=== PATIENT | male | born 1980 | race Caucasian/White ===

== ENCOUNTER 2018-12-16 16:26 | Emergency (ER) | payer OTHER, SELFPAY ==
[2018-12-16 16:28] VITALS: BP 153/93; PULSE 109; RESP 19; TEMP 36.3; O2SAT 99; BMI 31.6
--- NOTE | 2018-12-16 16:57 | ED.VIS.GEN ---
History of Present Illness Chief Complaint: Other, Pain/Inj Informant: Patient Narrative: Patient here with whole family for rabies vaccination and immunoglobulin. Exposed to about 11 days ago in the basement. 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 He states he called services who came the following day, they found a bat droppings couple areas in the attic and basement however that was not found. The following day the bat was found flying upstairs in the living room in the kitchen. Services were called back, the bat was caught, euthanized, sent to the lab on Saturday, he was confirmed to be rabid 2 days later on Saturday. They called the health department the following day was told he would need treatment. Father called food and beverage intern for children, was told he would not need treatment. They received additional notice from health department under door on Saturday, he called yesterday, was told her vaccination should have been already given and that whole family should have received this. Rediscussed with children's physician who did research and agrees today that vaccinations and immunoglobulin should be given. Reports to me that pharmacy in hospital here was already contacted who has enough quantity for treatment. Patient denies any pain rash or punctures. Reports he had chills yesterday. Only past medical history is GERD on medications. Prior similar symptoms: No Past Medical History - Allergies and Home Meds Allergies/Adverse Reactions: Allergies bee venom protein (honey bee) Allergy (Verified 12/16/18 16:28) Laryngospasms cat dander Allergy (Verified 12/16/18 16:28) Itching tomato Allergy (Verified 12/16/18 16:28) Hives tree and shrub pollen Allergy (Verified 12/16/18 16:28) Itching Primary Care Physician: Wing Galloway MD [Primary Care Provider] - Smoking Status: Never smoker Review of Systems General: Reports: Chills. Denies: Fever, Sweats Eyes: Denies: Visual changes - bilaterally, Diplopia ENT: Denies: Rhinorrhea, Sore throat Cardiovascular: Denies: Chest pain, Palpitations Respiratory: Denies: Dyspnea, Cough, Dyspnea on exertion Gastrointestinal: Denies: Abdominal pain, Nausea, Vomiting, Diarrhea, Melena, Hematochezia Genitourinary: Denies: Dysuria, Hematuria, Frequency Musculoskeletal: Denies: Back pain, Extremity Pain Skin: Denies: Rash, Wounds Neurological: Denies: Headache, Weakness, Numbness Physical Exam Vital Signs/Narrative: Vital Signs Temp Pulse Resp BP Pulse Ox 12/16/18 16:28 97.4 F L 109 H 19 H 153/93 H 99 Inital Vital Signs reviewed: Yes General: Well nourished, Well developed, No Acute Distress Head: Normocephalic, Atraumatic Eyes: Perrl, EOMI ENT: Moist mucous membranes, No rhinorrhea Neck: Supple, Nontender Cardiovascular: Regular rate, Regular rhythm, No murmurs Respiratory: No distress, CTA bilaterally, Chest nontender Abdomen: Soft, Nontender, Nondistended, Normal bowel sounds Back: Nontender, Normal Inspection Extremities: Nontender, No edema Skin: Normal color, No rash Neurological: Alert, Oriented x3, Cranial nerves II-XII grossly intact, Normal Strength, Normal Sensation Psychological: Normal affect, Normal Mood Diagnostic/Tx/Re-eval - Medical Decision Making Patient vital signs stable, nontoxic. Evaluation of CDC site does note that intubation. Could last from 2 to 8 weeks. Reported positive rabies exposure from bat. Agree with recommended treatment. Rabies vaccine will be given along with immunoglobulin at 20 units/kg. He will be scheduled to return for additional vaccine series at 3, 7, 14 days. ED Disposition - Plan for ED Patient: Disposition: Home or Assisted Living Diagnosis: Rabies exposure Instructions: Vaccine Information: Rabies, Rabies Immune Globulin (Human) Solution for injection Referrals: Wing Galloway MD [Primary Care Provider] - 5-7 Days Additional Instructions: Return for series of vaccines for rabies at day 3, 7, and 14 days. You do not need to check into the ED. This is performed in the triage.
[2018-12-16] MEDS: Rabies Vaccine,Human Diploid 2.5 UNITS Vial IM (18:15)
[2018-12-16 18:48] VITALS: RESP 18; O2SAT 100
== END 2018-12-16 18:48 | disposition home or self-care (01) ==
PROVIDERS: Emergency Provider Emergency Medicine; Family Provider Family Medicine; PCP Family Medicine
DX: Z23 Encounter for immunization (principal); Z20.3 Contact with and (suspected) exposure to rabies; K21.9 Gastro-esophageal reflux disease without esophagitis; Z79.899 Other long term (current) drug therapy
CPT/HCPCS: 90375; 90675; 96372; 99282

== ENCOUNTER 2018-12-19 16:25 | Outpatient (CLI) | payer OTHER, SELFPAY ==
[2018-12-19 17:13] VITALS: BP 118/86; PULSE 84; RESP 16; TEMP 36.8; O2SAT 96
[2018-12-19] MEDS: Rabies Vaccine,Human Diploid 2.5 UNITS Vial IM (17:17)
== END 2018-12-19 17:32 | disposition home or self-care (01) ==
LOC: ED 19:38
PROVIDERS: Family Provider Family Medicine; PCP Family Medicine
DX: Z23 Encounter for immunization (principal); Z20.3 Contact with and (suspected) exposure to rabies
CPT/HCPCS: 90675; 96372

== ENCOUNTER 2018-12-23 16:45 | Outpatient (CLI) | payer OTHER, SELFPAY ==
[2018-12-23 18:12] VITALS: BP 135/78; PULSE 75; RESP 18; TEMP 36.3; O2SAT 97
[2018-12-23] MEDS: Rabies Vaccine,Human Diploid 2.5 UNITS Vial IM (18:15)
== END 2018-12-23 18:30 | disposition home or self-care (01) ==
LOC: ED 18:34
PROVIDERS: Family Provider Family Medicine; PCP Family Medicine
DX: Z23 Encounter for immunization (principal); Z20.3 Contact with and (suspected) exposure to rabies
CPT/HCPCS: 90675; 96372

== ENCOUNTER 2018-12-30 17:00 | Outpatient (CLI) | payer OTHER, SELFPAY ==
[2018-12-30 17:06] VITALS: BP 113/66; PULSE 83; RESP 16; TEMP 36.4; O2SAT 99; BMI 31.9
[2018-12-30] MEDS: Rabies Vaccine,Human Diploid 2.5 UNITS Vial IM (17:50)
== END 2018-12-30 18:06 | disposition home or self-care (01) ==
LOC: ED 18:16
PROVIDERS: Family Provider Family Medicine; PCP Family Medicine
DX: Z23 Encounter for immunization (principal)
CPT/HCPCS: 90471; 90675; 96372

== ENCOUNTER 2022-12-05 07:04 | Day surgery (SDC) | payer OTHER, SELFPAY ==
[2022-12-05] VITALS (8 sets, daily range): BP systolic 87–134; BP diastolic 62–87; PULSE 69–92; RESP 16–18; TEMP 36.2–37.1; O2SAT 92–99; BMI 36.8
--- NOTE | 2022-12-05 | COLBX_PTH ---
PATIENT: NORMAN SANCHEZ LOC: EN U#:[id number] AGE/SX: 42/M ROOM: RE12/05/[address]: Dr. Geovanni Awad DO : 1980 BED: DIS: 12/05/2022 SPEC #: [id number] RECD: 12/05/22 12:19 STATUS: HERI KOURTNEY #: [id number] GIOVANNA: 12/05/22 00:[address]: Geovanni Awad DEPT: SURGICAL PATHOLOGY RECD BY: Gerry Maharaj ENTERED: 12/05/22 12:59 SP TYPE: COLON BX OTHR DR: Dr. Wing Galloway MD Tissues: A - Esophagus, NOS B - Gastric mucous membrane C - Descending colon Procedures: Surgery Specimen Level IV HEADER OPERATION: Colonoscopy with biopsy, EGD with biopsies PRE-OP DIAGNOSIS: GERD, bloody stools TISSUE SUBMITTED: A - Distal esophagus polyp biopsy, B - Gastric polyp, C - Descending colon polyp MICROSCOPIC DIAGNOSIS A. Distal esophagus polyp, biopsy: Fragments of squamous mucosa with chronic inflammation and changes suggestive of squamous papilloma. B. Gastric polyp, biopsy: Fundic gland polyp. See comment. C. Descending colon polyp, biopsy: Tubular adenoma. SJ:rg 12/06/2022 COMMENT B. Immunohistochemistry for Helicobacter pylori can be performed if clinically indicated. Please notify the Laboratory if it is needed. MICROSCOPIC DESCRIPTION Slides are reviewed. GROSS DESCRIPTION A - Received in fixative is one container labeled with the patient's name and designated distal esophagus polyp biopsy. The specimen consists of multiple irregular fragments of light keita soft tissue that in aggregate measure 1.2 x 0.2 x 0.1 cm. The specimen is totally submitted in one cassette. B - Received in fixative is one container labeled with the patient's name and designated gastric polyp. The specimen consists of two irregular fragments of light keita soft tissue that in aggregate measure 0.6 x 0.3 x 0.1 cm. The specimen is totally submitted in one cassette. C - Received in fixative is one container labeled with the patient's name and designated descending colon polyp. The specimen consists of a keita-pink polyp measuring 0.5 x 0.4 x 0.2 cm. The specimen is totally submitted in one cassette. / MARSHA:branden 12/05/2022 TC:1 CPT: 30105 x3
--- NOTE | 2022-12-05 | COLBX_PTH ---
PATIENT: NORMAN SANCHEZ LOC: EN U#:[id number] AGE/SX: 42/M ROOM: RE12/05/[address]: Dr. Geovanni Awad DO : 1980 BED: DIS: 12/05/2022 SPEC #: [id number] RECD: 12/05/22 12:19 STATUS: HERI KOURTNEY #: [id number] GIOVANNA: 12/05/22 00:[address]: Geovanni Awad DEPT: SURGICAL PATHOLOGY RECD BY: Gerry Maharaj ENTERED: 12/05/22 12:59 SP TYPE: COLON BX OTHR DR: Dr. Wing Galloway MD Tissues: A - Esophagus, NOS B - Gastric mucous membrane C - Descending colon Procedures: Surgery Specimen Level IV HEADER OPERATION: Colonoscopy with biopsy, EGD with biopsies PRE-OP DIAGNOSIS: GERD, bloody stools TISSUE SUBMITTED: A - Distal esophagus polyp biopsy, B - Gastric polyp, C - Descending colon polyp MICROSCOPIC DIAGNOSIS A. Distal esophagus polyp, biopsy: Fragments of squamous mucosa with chronic inflammation and changes suggestive of squamous papilloma. See comment. B. Gastric polyp, biopsy: Fundic gland polyp. See comment. C. Descending colon polyp, biopsy: Tubular adenoma. SJ:branden 12/06/2022 SJ: 12/07/2022 COMMENT A. Focal superficial erosion, acute and chronic inflammation, granulation tissue reaction and reactive changes are also noted. B. Immunohistochemistry for Helicobacter pylori can be performed if clinically indicated. Please notify the Laboratory if it is needed. Case has been reviewed in consultation with Dr. Lang who concurs with the above diagnosis. IDC:AM MICROSCOPIC DESCRIPTION Slides are reviewed. GROSS DESCRIPTION A - Received in fixative is one container labeled with the patient's name and designated distal esophagus polyp biopsy. The specimen consists of multiple irregular fragments of light keita soft tissue that in aggregate measure 1.2 x 0.2 x 0.1 cm. The specimen is totally submitted in one cassette. B - Received in fixative is one container labeled with the patient's name and designated gastric polyp. The specimen consists of two irregular fragments of light keita soft tissue that in aggregate measure 0.6 x 0.3 x 0.1 cm. The specimen is totally submitted in one cassette. C - Received in fixative is one container labeled with the patient's name and designated descending colon polyp. The specimen consists of a keita-pink polyp measuring 0.5 x 0.4 x 0.2 cm. The specimen is totally submitted in one cassette. / SJ:rg 12/05/2022 TC:1 CPT: 07296 x3
[2022-12-05] MEDS: Ipratropium/Albuterol Sulfate 3 ML AMPUL.NEB INHALATION (07:45)
[2022-12-05] MEDS: Lactated Ringers 1,000 ML 15 ML IV (07:47)
--- NOTE | 2022-12-05 07:50 | HP.PCM_ITS ---
History and Physical Date of Admission: 12/05/22 NORMAN SANCHEZ, is a 42 M who presents to the office today for a follow up. *BGI established 6.21.22 for GERD currently managed by lansoprazole 30mg QD with breakthrough symptoms by the evening. Notes blood on toilet paper following morning BM. EGD and colonoscopy recommended, not performed.? States that since switching to a bidet he has not noticed much rectal bleeding. States that BMs are regular and has a BM at least 3 times a day. States that his GERD has improved since not snacking at night. Patient would like to get rescheduled for EGD/Colonoscopy. ROS Const Constitutional: No fatigue, fever(s), frequent falls, headache(s) or weight c hange ENT ENT: Positive for neck pain; No headache(s) or difficulty swallowing Cardio Cardiology: No leg pain with exertion Gastro GI: Positive for heartburn and vomiting; No abdominal pain, bloating, change in bowel habits, constipation, diarrhea, difficulty swallowing, Vomiting blood/hematemesis, Blood in stool or nause a/dyspepsia Musc Musculoskeletal: Positive for neck pain; No abnormal gait, joint pain, back pain, joint swelling, muscle cramps, muscle weakness, numbness, stiffness, tingling, Arthritis, sciatica, leg pain at night or leg pain with exertion Skin Skin: Positive for dry skin, itchy eyes and rash (scabies); No lesions Neuro Neurology: No abnormal gait, dizziness, frequent falls, headache(s), numbness, tingling, tremor(s), Increased tone in limbs, paralysis or seizures Psych Psychiatric: Positive for anxiety, No depression, No paranoia, No Behavioral Problems, No Compulsive Behavior, No hyperactivity, No inattentiveness, No obsessions/compulsions, No Temper Tantrums and No suicidal ideation Endo Endocrine: No fatigue or weight change Aller/Imm Allergy/Immunologic: Positive for itchy eyes George/Lymp Hematologic/Lymphatic: No easy bleeding or easy bruising Exam Const General: cooperative and comfortable Nutritional Appearance: average body habitus and well nourished [facility] Head: normal to inspection Ears: hearing grossly normal bilaterally Nose: external nose normal Face and sinus: normal facial exam Mouth: oral mucosae normal Throat: posterior oropharynx normal Eyes General: appearance normal, both eyes and all related structures Neck Neck: normal visual inspection Chest Chest palpation & inspection: normal inspection of the chest and normal palpation of entire chest wall Resp Effort & Inspection: normal respiratory effort Auscultation: Bilateral: Clear to Auscultation Cardio Palpation: normal PMI Rate: regular rate Rhythm: regular rhythm GI Inspection: normal to inspection Auscultation: normal bowel sounds Percussion: normal to percussion Palpation: no hepatosplenomegaly Skin General: no rashes or lesions noted Neuro General: patient alert Extrem General: normal to inspection Psych Affect: normal affect Quality Reporting Tobacco Screening ([facility] 138) Smoking Status: Former smoker Assessment and Plan Assessment and Plan (1) Gastroesophageal reflux disease: Qualifiers: Esophagitis presence: without esophagitis Qualified Code(s): K21.9 - Gastro-esophageal reflux disease without esophagitis Plan: Differential diagnosis for his refractory gastroesophageal reflux bile acid reflux, refractory reflux ,hiatal hernia, incompetent lower esophageal sphincter, delayed gastric emptying. He should undergo an upper endoscopy to evaluate his upper GI tract for screening for Gupta's esophagus. He was explained alternatives, risk, benefits including outstanding bleeding, infection, sepsis, perforation, need for additional . He will have an ASA of 1. (2) Bloody stools: Status: Acute Plan: Differential diagnosis for his bloody stools does include diverticular disease, ischemic colitis, Crohn's colitis, ulcerative colitis, infectious colitis. We will do stool studies along with biochemical testing and colonoscopy to evaluate his lower GI tract. He was explained alternatives, risk, benefits including outstanding bleeding, infection, sepsis, perforation, need for urgent . He will have an ASA of 1. I have examined the patient and the H&P has been reviewed. There are no clinical changes since date of exam.
--- NOTE | 2022-12-05 08:42 | OP.EGD_ITS ---
Patient Name: Zoltan Newton Procedure Date: 12/05/2022 7:52 AM Date of : 1980 Age: 42 Procedure: Upper GI endoscopy Indications: Heartburn Providers: Geovanni Awad DO Medicines: Monitored Anesthesia Care Patient Profile: This is a 42 year old male. Refer to note in patient chart for documentation of history and physical. Patient has symptoms of chronic heartburn. Complications: No immediate complications. Procedure: Pre-Anesthesia Assessment: - Prior to the procedure, a History and Physical was performed, and patient medications and allergies were reviewed. The patient is competent. The risks and benefits of the procedure and the sedation options and risks were discussed with the patient. All questions were answered and informed consent was obtained. Patient identification and proposed procedure were verified by the physician. Mental Status Examination: alert and oriented. Airway Examination: normal oropharyngeal airway and neck mobility. Respiratory Examination: clear to auscultation. CV Examination: normal. Prophylactic Antibiotics: The patient does not require prophylactic antibiotics. Prior Anticoagulants: The patient has taken no anticoagulant or antiplatelet agents. ASA Grade Assessment: II - A patient with mild systemic disease. After reviewing the risks and benefits, the patient was deemed in satisfactory condition to undergo the procedure. The anesthesia plan was to use monitored anesthesia care (MAC). Immediately prior to administration of medications, the patient was re-assessed for adequacy to receive sedatives. The heart rate, respiratory rate, oxygen saturations, blood pressure, adequacy of pulmonary ventilation, and response to care were monitored throughout the procedure. The physical status of the patient was re-assessed after the procedure. After obtaining informed consent, the endoscope was passed under direct vision. Throughout the procedure, the patient's blood pressure, pulse, and oxygen saturations were monitored continuously. The pediatric colonoscope was introduced through the mouth, and advanced to the second part of duodenum. The upper GI endoscopy was accomplished without difficulty. The patient tolerated the procedure well. Scope In: 8:07:15 AM Scope Out: 8:14:09 AM Total Procedure Duration Time 0 hours 6 minutes 54 seconds Findings: One 5 mm polyp with no bleeding was found 40 to 41 cm from the incisors. Biopsies were taken with a cold forceps for histology. Verification of patient identification for the specimen was done by the physician. Estimated blood loss was minimal. A medium-sized hiatal hernia was present. Multiple 29 mm pedunculated and sessile polyps with no bleeding and no stigmata of recent bleeding were found in the gastric fundus, in the gastric body and on the greater curvature of the stomach. Biopsies were taken with a cold forceps for histology. Biopsies were taken with a cold forceps for histology. Verification of patient identification for the specimen was done. Estimated blood loss was minimal. The exam of the duodenum was otherwise normal. Impression: - Esophageal polyp(s) were found. Biopsied. - Medium-sized hiatal hernia. - Multiple gastric polyps. Biopsied. Recommendation: - Discharge patient to home. - Resume previous diet. - Continue present medications. - Await pathology results. - Repeat upper endoscopy in 2 months. Procedure Code(s): --- Professional --- 11467, Esophagogastroduodenoscopy, flexible, transoral; with biopsy, single or multiple CPT copyright 2021 [employer]. All rights reserved. The codes documented in this report are preliminary and upon control electrician review may be revised to meet current compliance requirements. Geovanni Awad DO 12/05/2022 8:42:03 AM This report has been signed electronically. Number of Addenda: 0 Note Initiated On: 12/05/2022 7:52 AM
--- NOTE | 2022-12-05 08:42 | OP.CCLET_ITS ---
12/05/2022 Wing Galloway [address] [place] [address] [place] [address] Re : Upper GI endoscopy procedure for Zoltan Newton Dear Dr. Galloway This procedure was performed on Monday, December 05, 2022. My impressions and recommendations are as follows: Impressions : - Esophageal polyp(s) were found. Biopsied. - Medium-sized hiatal hernia. - Multiple gastric polyps. Biopsied. Recommendations : - Discharge patient to home. - Resume previous diet. - Continue present medications. - Await pathology results. - Repeat upper endoscopy in 2 months. My findings are described in the full procedure note, which is enclosed. If I can be of further assistance, please feel free to contact me at . Sincerely, Geovanni Awad, 12/05/2022 8:42:03 AM This report has been signed electronically.
--- NOTE | 2022-12-05 08:45 | OP.CCLET_ITS ---
12/05/2022 Wing Galloway [address] [place] [address] [place] [id number] Re : Colonoscopy procedure for Zoltan Adornorien Dear Dr. Galloway This procedure was performed on Monday, December 05, 2022. My impressions and recommendations are as follows: Impressions : - A single non-bleeding colonic angiodysplastic lesion. - Diverticulosis in the recto-sigmoid colon and in the sigmoid colon. - One 7 mm polyp in the descending colon, removed with a hot snare. Resected and retrieved. Recommendations : - Repeat colonoscopy in 5 years for surveillance. - Continue present medications. - No aspirin, ibuprofen, naproxen, or other non-steroidal anti-inflammatory drugs for 7 days. My findings are described in the full procedure note, which is enclosed. If I can be of further assistance, please feel free to contact me at . Sincerely, Geovanni Friend, DO 12/05/2022 8:45:30 AM This report has been signed electronically.
--- NOTE | 2022-12-05 08:45 | OP.COLON_ITS ---
Patient Name: Zoltan Newton Procedure Date: 12/05/2022 8:14 AM Date of : 1980 Age: 42 Procedure: Colonoscopy Indications: Screening for colorectal malignant neoplasm Providers: Geovanni Awad DO Medicines: Monitored Anesthesia Care Patient Profile: This is a 42 year old male. Refer to note in patient chart for documentation of history and physical. Patient has symptoms of chronic heartburn. Last Colonoscopy: none. The patient's first colonoscopy is today. Complications: No immediate complications. Procedure: Pre-Anesthesia Assessment: - Prior to the procedure, a History and Physical was performed, and patient medications and allergies were reviewed. The patient is competent. The risks and benefits of the procedure and the sedation options and risks were discussed with the patient. All questions were answered and informed consent was obtained. Patient identification and proposed procedure were verified by the physician. Mental Status Examination: alert and oriented. Airway Examination: normal oropharyngeal airway and neck mobility. Respiratory Examination: clear to auscultation. CV Examination: normal. Prophylactic Antibiotics: The patient does not require prophylactic antibiotics. Prior Anticoagulants: The patient has taken no anticoagulant or antiplatelet agents. ASA Grade Assessment: II - A patient with mild systemic disease. After reviewing the risks and benefits, the patient was deemed in satisfactory condition to undergo the procedure. The anesthesia plan was to use monitored anesthesia care (MAC). Immediately prior to administration of medications, the patient was re-assessed for adequacy to receive sedatives. The heart rate, respiratory rate, oxygen saturations, blood pressure, adequacy of pulmonary ventilation, and response to care were monitored throughout the procedure. The physical status of the patient was re-assessed after the procedure. After I obtained informed consent, the scope was passed under direct vision. Throughout the procedure, the patient's blood pressure, pulse, and oxygen saturations were monitored continuously. The pediatric colonoscope was introduced through the anus and advanced to the cecum, identified by appendiceal orifice and ileocecal valve. The colonoscopy was performed without difficulty. The patient tolerated the procedure well. The quality of the bowel preparation was adequate. The ileocecal valve, appendiceal orifice, and rectum were photographed. Scope In: 8:16:03 AM Scope Withdrawal Time 0 hours 9 minutes 40 seconds Scope Out: 8:29:09 AM Total Procedure Duration Time 0 hours 13 minutes 6 seconds Findings: The perianal and digital rectal examinations were normal. A single small angiodysplastic lesion without bleeding was found in the sigmoid colon. A few small-mouthed diverticula were found in the recto-sigmoid colon and sigmoid colon. A 7 mm polyp was found in the descending colon. The polyp was sessile. The polyp was removed with a hot snare. Resection and retrieval were complete. Verification of patient identification for the specimen was done. Estimated blood loss was minimal. Impression: - A single non-bleeding colonic angiodysplastic lesion. - Diverticulosis in the recto-sigmoid colon and in the sigmoid colon. - One 7 mm polyp in the descending colon, removed with a hot snare. Resected and retrieved. Recommendation: - Repeat colonoscopy in 5 years for surveillance. - Continue present medications. - No aspirin, ibuprofen, naproxen, or other non-steroidal anti-inflammatory drugs for 7 days. Procedure Code(s): --- Professional --- 73960, Colonoscopy, flexible; with removal of tumor(s), polyp(s), or other lesion(s) by snare technique CPT copyright 2021 [employer]. All rights reserved. The codes documented in this report are preliminary and upon preparer making department review may be revised to meet current compliance requirements. Geovanni Awad DO 12/05/2022 8:45:30 AM This report has been signed electronically. Number of Addenda: 0 Note Initiated On: 12/05/2022 8:14 AM
== END 2022-12-05 09:58 | disposition home or self-care (01) ==
LOC: EN 07:08 → AC 07:09
PROVIDERS: PCP Family Medicine; Referring Provider Family Medicine; Visit Provider Internal Medicine Gastroenterology
PROC: 0DJD8ZZ Inspection of Lower Intestinal Tract, Via Natural or Artificial Opening Endoscopic (ICD-10-PCS; CPT 45378; principal; 2022-12-05 07:55)
DX: Z12.11 Encounter for screening for malignant neoplasm of colon (principal); K55.20 Angiodysplasia of colon without hemorrhage; K57.31 Diverticulosis of large intestine without perforation or abscess with bleeding; D12.4 Benign neoplasm of descending colon; D13.0 Benign neoplasm of esophagus; K31.7 Polyp of stomach and duodenum; K44.9 Diaphragmatic hernia without obstruction or gangrene; K21.9 Gastro-esophageal reflux disease without esophagitis; Z79.899 Other long term (current) drug therapy; Z87.891 Personal history of nicotine dependence
CPT/HCPCS: 45385; 43239; 88305; 94640; J7120; J2405

== ENCOUNTER 2023-01-30 06:58 | Day surgery (SDC) | payer OTHER, SELFPAY ==
[2023-01-30] VITALS (7 sets, daily range): BP systolic 114–121; BP diastolic 72–80; PULSE 73–90; RESP 16; TEMP 36.6–37.2; O2SAT 95–100; BMI 36.0
--- NOTE | 2023-01-30 | IMM_PTH ---
PATIENT: NORMAN SANCHEZ LOC: EN U#:[id number] AGE/SX: 42/M ROOM: RE01/30/[address]: Dr. Geovanni Awad DO : 1980 BED: DIS: 01/30/2023 SPEC #: [id number] RECD: 02/01/23 13:46 STATUS: HERI REQ #: [id number] GIOVANNA: 01/30/23 00:[address]: Geovanni Awad DEPT: IMMUNOHISTOCHEMISTRY RECD BY: Pauly Larson ENTERED: 02/01/23 13:48 SP TYPE: IMMUNO OTHR DR: Dr. Wing Galloway MD Tissues: Stomach, NOS Procedures: P53 (initial) KI-67 (add) P53 (add) MOC-31 (add) PHYSICIAN & INSTITUTION [place] [id number] SPECIMEN INFORMATION: Tissue Source: Multiple gastric body polyps Clinical Info: GERD Specimen Number: [id number] #1-6 CPT code: 27986, 49636 x17 METHODOLOGY: Deparaffinized sections of prefer/formalin-fixed tissue or PAP/DQ stained slides are incubated with monoclonal/polyclonal antibodies/oligonucleotide probes. Localization is made via biotin free immunoperoxidase method. Appropriate controls are performed and reacted as expected. Results on target cell population are indicated in the following table: RESULTS: ANTIBODY / CLONE RESULT Block 1 P53 (DO-7) negative (null pattern) Ki-67 (30-9) positive, low MOC-31 (4561) negative Block 2 P53 (DO-7) negative (null pattern) Ki-67 (30-9) positive, focally high MOC-31 (4561) positive, focal weak Block 3 P53 (DO-7) positive, focal wild type pattern Ki-67 (30-9) positive, focal high MOC-31 (4561) positive, focal weak Block 4 P53 (DO-7) negative (null pattern) Ki-67 (30-9) positive, focal high MOC-31 (4561) positive, focal weak Block 5 P53 (DO-7) positive, focal wild type pattern Ki-67 (30-9) positive, focal high MOC-31 (4561) positive, focal weak Block 6 P53 (DO-7) negative (null pattern) Ki-67 (30-9) positive, focal high MOC-31 (4561) positive, focal These tests were developed and their performance characteristics determined by [facility]. They may not have been cleared or approved by the U.S. Food and Drug Administration. The FDA has determined that such clearance or approval is not necessary. The above immunohistochemical/dualISH markers are ordered and reviewed by the Pathologist. INTERPRETATION: Multiple gastric body polyps, polypectomy: Fragments of hyperplastic/inflammatory polyps with focal adenomatous changes and focal high grade dysplasia SJ:hansel 02/04/2023
[2023-01-30] MEDS: Lactated Ringers 1,000 ML 15 ML IV (07:30)
--- NOTE | 2023-01-30 07:57 | PCM.HP.BLA ---
History and Physical Date of Admission: 01/30/23 NORMAN SANCHEZ, is a 42 M who presents to the office today for a follow up. *BGI established 6.21.22 for GERD currently managed by lansoprazole 30mg QD with breakthrough symptoms by the evening. Notes blood on toilet paper following morning BM. EGD and colonoscopy recommended, not performed.? States that since switching to a bidet he has not noticed much rectal bleeding. States that BMs are regular and has a BM at least 3 times a day. States that his GERD has improved since not snacking at night. ROS Const Constitutional: No fatigue, fever(s), frequent falls, headache(s) or weight change ENT ENT: Positive for neck pain; No headache(s) or difficulty swallowing Cardio Cardiology: No leg pain with exertion Gastro GI: Positive for heartburn and vomiting; No abdominal pain, bloating, change in bowel habits, constipation, diarrhea, difficulty swallowing, Vomiting blood/hematemesis, Blood in stool or nausea/dyspepsia Musc Musculoskeletal: Positive for neck pain; No abnormal gait, joint pain, back pain, joint swelling, muscle cramps, muscle weakness, numbness, stiffness, tingling, Arthritis, sciatica, leg pain at night or leg pain with exertion Skin Skin: Positive for dry skin, itchy eyes and rash (scabies); No lesions Neuro Neurology: No abnormal gait, dizziness, frequent falls, headache(s), numbness, tingling, tremor(s), Increased tone in limbs, paralysis or seizures Psych Psychiatric: Positive for anxiety, No depression, No paranoia, No Behavioral Problems, No Compulsive Behavior, No hyperactivity, No inattentiveness, No obsessions/compulsions, No Temper Tantrums and No suicidal ideation Endo Endocrine: No fatigue or weight change Aller/Imm Allergy/Immunologic: Positive for itchy eyes George/Lymp Hematologic/Lymphatic: No easy bleeding or easy bruising Exam Const General: cooperative and comfortable Nutritional Appearance: average body habitus and well nourished [facility] Head: normal to inspection Ears: hearing grossly normal bilaterally Nose: external nose normal Face and sinus: normal facial exam Mouth: oral mucosae normal Throat: posterior oropharynx normal Eyes General: appearance normal, both eyes and all related structures Neck Neck: normal visual inspection Chest Chest palpation & inspection: normal inspection of the chest and normal palpation of entire chest wall Resp Effort & Inspection: normal respiratory effort Auscultation: Bilateral: Clear to Auscultation Cardio Palpation: normal PMI Rate: regular rate Rhythm: regular rhythm GI Inspection: normal to inspection Auscultation: normal bowel sounds Percussion: normal to percussion Palpation: no hepatosplenomegaly Skin General: no rashes or lesions noted Neuro General: patient alert Extrem General: normal to inspection Psych Affect: normal affect Quality Reporting Tobacco Screening ([facility] 138) Smoking Status: Former smoker Assessment and Plan Assessment and Plan (1) Gastroesophageal reflux disease: Qualifiers: Esophagitis presence: without esophagitis Qualified Code(s): K21.9 - Gastro-esophageal reflux disease without esophagitis Plan: Differential diagnosis for his refractory gastroesophageal reflux bile acid reflux, refractory reflux ,hiatal hernia, incompetent lower esophageal sphincter, delayed gastric emptying. He should undergo an upper endoscopy to evaluate his upper GI tract for screening for Gupta's esophagus. He was explained alternatives, risk, benefits including outstanding bleeding, infection, sepsis, perforation, need for additional . He will have an ASA of 1. (2) multiple bleeding polyps in the stomach. We will repeat his upper endoscopy with removal of bleeding polyps. I have examined the patient and the H&P has been reviewed. There are no clinical changes since date of exam.
--- NOTE | 2023-01-30 08:00 | EGD_PTH ---
PATIENT: NORMAN SANCHEZ LOC: EN U#:[id number] AGE/SX: 42/M ROOM: RE01/30/[address]: Dr. Geovanni Awad DO : 1980 BED: DIS: 01/30/2023 SPEC #: [id number] RECD: 01/30/23 14:03 STATUS: HERI REPoppy #: [id number] GIOVANNA: 01/30/23 08:[address]: Geovanni Awad DEPT: SURGICAL PATHOLOGY RECD BY: Kay Thompson ENTERED: 01/31/23 09:06 SP TYPE: EGD BIOPSY OT DR: Dr. Wing Galloway MD Tissues: Gastric mucous membrane Procedures: Surgery Specimen Level IV HEADER OPERATION: EGD with polypectomy PRE-OP DIAGNOSIS: GERD TISSUE SUBMITTED: Multiple gastric body polyps MICROSCOPIC DIAGNOSIS Multiple gastric body polyps, polypectomy: Fragments of hyperplastic/inflammatory polyp with focal adenomatous changes with focal high-grade dysplasia. A fragment of squamous papilloma with focal superficial ulceration and associated acute inflammation. See comment. SJ:branden 02/01/2023 COMMENT Many of the gastric polyps also show focal ulceration and associated acute inflammation. Immunohistochemistry ([id number]) supports the above diagnosis. Please make reference to previous specimen ([id number]) distal esophagus polyp, biopsy with diagnosis of fragments of squamous mucosa with chronic inflammation and changes suggestive of squamous papilloma, gastric polyp, biopsy with diagnosis of fundic gland polyp, and descending colon polyp, biopsy with diagnosis of tubular adenoma. Case has been reviewed in consultation with Dr. Lang who concurs with the above diagnosis. IDC:AM MICROSCOPIC DESCRIPTION Slides are reviewed. GROSS DESCRIPTION Received in fixative is one container labeled with the patient's name and designated multiple gastric body polyps. The specimen consists of multiple irregular fragments of keita-pink polypoid tissue that in aggregate measure 5.0 x 4.0 x 1.5 cm and 0.3 to 1.8 cm in greatest dimension. The larger polyps are bisected or serially sectioned. The entire specimen is submitted in six cassettes. / MARSHA:branden 01/31/2023 TC:5 CPT: 97505
--- NOTE | 2023-01-30 08:41 | OP.EGD_ITS ---
Patient Name: Zoltan Newton Procedure Date: 01/30/2023 7:58 AM Date of : 1980 Age: 42 Procedure: Upper GI endoscopy Indications: Heartburn, Abdominal bloating Providers: Geovanni Awad DO Medicines: Monitored Anesthesia Care Patient Profile: This is a 42 year old male. Refer to note in patient chart for documentation of history and physical. Patient has symptoms of chronic epigastric abdominal pain and chronic heartburn. Complications: No immediate complications. Procedure: Pre-Anesthesia Assessment: - Prior to the procedure, a History and Physical was performed, and patient medications and allergies were reviewed. The risks and benefits of the procedure and the sedation options and risks were discussed with the patient. All questions were answered and informed consent was obtained. Patient identification and proposed procedure were verified by the physician. Mental Status Examination: normal. Prophylactic Antibiotics: The patient does not require prophylactic antibiotics. Prior Anticoagulants: The patient has taken no anticoagulant or antiplatelet agents. After reviewing the risks and benefits, the patient was deemed in satisfactory condition to undergo the procedure. The anesthesia plan was to use monitored anesthesia care (MAC). Immediately prior to administration of medications, the patient was re-assessed for adequacy to receive sedatives. The heart rate, respiratory rate, oxygen saturations, blood pressure, adequacy of pulmonary ventilation, and response to care were monitored throughout the procedure. The physical status of the patient was re-assessed after the procedure. After obtaining informed consent, the endoscope was passed under direct vision. Throughout the procedure, the patient's blood pressure, pulse, and oxygen saturations were monitored continuously. The gastroscope was introduced through the mouth, and advanced to the second part of duodenum. The upper GI endoscopy was accomplished without difficulty. The patient tolerated the procedure well. Scope In: 8:07:45 AM Scope Out: 8:33:26 AM Total Procedure Duration Time 0 hours 25 minutes 41 seconds Findings: LA Grade C (one or more mucosal breaks continuous between tops of 2 or more mucosal folds, less than 75% circumference) esophagitis with no bleeding was found 36 to 39 cm from the incisors. A medium-sized hiatal hernia was present. Multiple 1 to 3 mm pedunculated and sessile polyps with bleeding and stigmata of recent bleeding were found in the stomach. The polyp was removed with a saline injection-lift technique using a hot snare. Resection and retrieval were complete. Verification of patient identification for the specimen was done. Estimated blood loss was minimal. No gross lesions were noted in the duodenal bulb. Impression: - LA Grade C reflux esophagitis with no bleeding. - Medium-sized hiatal hernia. - Multiple gastric polyps. Resected and retrieved. - No gross lesions in the duodenal bulb. Recommendation: - Discharge patient to home. - Resume previous diet. - Continue present medications. - Await pathology results. - Repeat upper endoscopy for surveillance. Procedure Code(s): --- Professional --- 38114, Esophagogastroduodenoscopy, flexible, transoral; with removal of tumor(s), polyp(s), or other lesion(s) by snare technique [id number], Esophagogastroduodenoscopy, flexible, transoral; with directed submucosal injection(s), any substance CPT copyright 2021 [employer]. All rights reserved. The codes documented in this report are preliminary and upon professional fee coder review may be revised to meet current compliance requirements. Geovanni Awad DO 01/30/2023 8:40:37 AM This report has been signed electronically. Number of Addenda: 0 Note Initiated On: 01/30/2023 7:58 AM
--- NOTE | 2023-01-30 08:41 | OP.CCLET_ITS ---
01/30/2023 Wing Galloway [address] [place] [address] Re : Upper GI endoscopy procedure for Zoltan Newton Dear Dr. Galloway This procedure was performed on Monday, January 30, 2023. My impressions and recommendations are as follows: Impressions : - LA Grade C reflux esophagitis with no bleeding. - Medium-sized hiatal hernia. - Multiple gastric polyps. Resected and retrieved. - No gross lesions in the duodenal bulb. Recommendations : - Discharge patient to home. - Resume previous diet. - Continue present medications. - Await pathology results. - Repeat upper endoscopy for surveillance. My findings are described in the full procedure note, which is enclosed. If I can be of further assistance, please feel free to contact me at . Sincerely, Geovanni Awad, 01/30/2023 8:40:37 AM This report has been signed electronically.
== END 2023-01-30 09:19 | disposition home or self-care (01) ==
LOC: EN 07:00 → AC 07:01
PROVIDERS: PCP Family Medicine; Referring Provider Family Medicine; Visit Provider Internal Medicine Gastroenterology
PROC: 0DJ08ZZ Inspection of Upper Intestinal Tract, Via Natural or Artificial Opening Endoscopic (ICD-10-PCS; CPT 43235; principal; 2023-01-30 07:55)
DX: K21.00 Gastro-esophageal reflux disease with esophagitis, without bleeding (principal); K44.9 Diaphragmatic hernia without obstruction or gangrene; K31.7 Polyp of stomach and duodenum; K25.3 Acute gastric ulcer without hemorrhage or perforation; Z87.891 Personal history of nicotine dependence; Z79.899 Other long term (current) drug therapy
CPT/HCPCS: 43251; 43236; 81002; 88305; 88341; 88342; J7120

== ENCOUNTER 2023-02-12 11:43 | Day surgery (SDC) | payer OTHER, SELFPAY ==
[2023-02-12] VITALS (7 sets, daily range): BP systolic 105–132; BP diastolic 62–86; PULSE 70–87; RESP 16–18; TEMP 36.6–37; O2SAT 96–100; BMI 36.1
--- NOTE | 2023-02-12 | EGD_PTH ---
PATIENT: NORMAN SANCHEZ LOC: EN U#:[id number] AGE/SX: 42/M ROOM: RE02/12/[address]: Dr. Geovanni Awad DO : 1980 BED: DIS: 02/12/2023 SPEC #: [id number] RECD: 02/13/23 08:13 STATUS: HERI KOURTNEY #: [id number] GIOVANNA: 02/12/23 00:[address]: Geovanni Awad DEPT: SURGICAL PATHOLOGY RECD BY: Kay Thompson ENTERED: 02/13/23 08:14 SP TYPE: EGD BIOPSY OT DR: Dr. Wing Galloway MD Tissues: A - Gastric mucous membrane B - Esophageal mucous membrane Procedures: Special Stain Group II Surgery Specimen Level IV Alcian Blue/PAS (control) HEADER OPERATION: EGD, polypectomy PRE-OP DIAGNOSIS: GERD, gastric polyps TISSUE SUBMITTED: A - Gastric polyps, B - Gastroesophageal junction polyp MICROSCOPIC DIAGNOSIS A. Gastric polyps, biopsy: Consistent with fundic gland polyps. B. Gastroesophageal junction polyp, biopsy: Hyperplastic polyp. Junctional mucosa with chronic inflammation and focal changes of reflux. No evidence of goblet cell metaplasia. See comment. AM:branden 02/14/2023 COMMENT B. Alcian blue/PAS stain with matched control supports the above diagnosis. MICROSCOPIC DESCRIPTION Slides are reviewed. GROSS DESCRIPTION A - Received in fixative is one container labeled with the patient's name and designated gastric polyps. The specimen consists of multiple irregular fragments of light keita soft tissue that in aggregate measure 5.0 x 4.0 x 0.3 cm. The specimen is totally submitted in two cassettes. B - Received in fixative is one container labeled with the patient's name and designated GE junction. The specimen consists of a single polypoid fragment of keita tissue measuring 1.3 x 1.0 x 0.5 cm. The specimen is totally submitted in one cassette. / AM:branden 02/13/2023 TC:3 CPT: 57296 x2, 01383
--- NOTE | 2023-02-12 12:06 | HP.PCM_ITS ---
History and Physical Date of Admission: 02/12/23 NORMAN SANCHEZ, is a 42 M who presents to the office today for a follow up. *BGI established 6.21.22 for GERD currently managed by lansoprazole 30mg QD with breakthrough symptoms by the evening. Notes blood on toilet paper following morning BM. EGD and colonoscopy recommended, not performed.? States that since switching to a bidet he has not noticed much rectal bleeding. States that BMs are regular and has a BM at least 3 times a day. States that his GERD has improved since not snacking at night. Patient would like to get rescheduled for EGD/Colonoscopy. ROS Const Constitutional: No fatigue, fever(s), frequent falls, headache(s) or weight c hange ENT ENT: Positive for neck pain; No headache(s) or difficulty swallowing Cardio Cardiology: No leg pain with exertion Gastro GI: Positive for heartburn and vomiting; No abdominal pain, bloating, change in bowel habits, constipation, diarrhea, difficulty swallowing, Vomiting blood/hematemesis, Blood in stool or nause a/dyspepsia Musc Musculoskeletal: Positive for neck pain; No abnormal gait, joint pain, back pain, joint swelling, muscle cramps, muscle weakness, numbness, stiffness, tingling, Arthritis, sciatica, leg pain at night or leg pain with exertion Skin Skin: Positive for dry skin, itchy eyes and rash (scabies); No lesions Neuro Neurology: No abnormal gait, dizziness, frequent falls, headache(s), numbness, tingling, tremor(s), Increased tone in limbs, paralysis or seizures Psych Psychiatric: Positive for anxiety, No depression, No paranoia, No Behavioral Problems, No Compulsive Behavior, No hyperactivity, No inattentiveness, No obsessions/compulsions, No Temper Tantrums and No suicidal ideation Endo Endocrine: No fatigue or weight change Aller/Imm Allergy/Immunologic: Positive for itchy eyes George/Lymp Hematologic/Lymphatic: No easy bleeding or easy bruising Exam Const General: cooperative and comfortable Nutritional Appearance: average body habitus and well nourished [facility] Head: normal to inspection Ears: hearing grossly normal bilaterally Nose: external nose normal Face and sinus: normal facial exam Mouth: oral mucosae normal Throat: posterior oropharynx normal Eyes General: appearance normal, both eyes and all related structures Neck Neck: normal visual inspection Chest Chest palpation & inspection: normal inspection of the chest and normal palpation of entire chest wall Resp Effort & Inspection: normal respiratory effort Auscultation: Bilateral: Clear to Auscultation Cardio Palpation: normal PMI Rate: regular rate Rhythm: regular rhythm GI Inspection: normal to inspection Auscultation: normal bowel sounds Percussion: normal to percussion Palpation: no hepatosplenomegaly Skin General: no rashes or lesions noted Neuro General: patient alert Extrem General: normal to inspection Psych Affect: normal affect Quality Reporting Tobacco Screening ([facility] 138) Smoking Status: Former smoker Assessment and Plan Assessment and Plan (1) Gastroesophageal reflux disease: Qualifiers: Esophagitis presence: without esophagitis Qualified Code(s): K21.9 - Gastro-esophageal reflux disease without esophagitis Plan: Differential diagnosis for his refractory gastroesophageal reflux bile acid reflux, refractory reflux ,hiatal hernia, incompetent lower esophageal sphincter, delayed gastric emptying. He should undergo an upper endoscopy to evaluate his upper GI tract for screening for Gupta's esophagus. He will also have the other gastric polyps removed and and particularly the one that was near the GE junction we will remove that even more so it can be separately analyzed as that 1 displayed high-grade dysplasia. He was explained alternatives, risk, benefits including outstanding bleeding, infection, sepsis, perforation, need for additional . He will have an ASA of 1. I have examined the patient and the H&P has been reviewed. There are no clinical changes since date of exam.
[2023-02-12] MEDS: Lactated Ringers 1,000 ML 15 ML IV (12:19)
--- NOTE | 2023-02-12 13:39 | OP.EGD_ITS ---
Patient Name: Zoltan Newotn Procedure Date: 02/12/2023 12:39 PM Date of : 1980 Age: 42 Procedure: Upper GI endoscopy Indications: Heartburn Providers: Geovanni Awad DO Medicines: Monitored Anesthesia Care Patient Profile: This is a 42 year old male. Refer to note in patient chart for documentation of history and physical. Patient has symptoms of chronic heartburn. Complications: No immediate complications. Procedure: Pre-Anesthesia Assessment: - Prior to the procedure, a History and Physical was performed, and patient medications and allergies were reviewed. The patient is competent. The risks and benefits of the procedure and the sedation options and risks were discussed with the patient. All questions were answered and informed consent was obtained. Patient identification and proposed procedure were verified by the physician in the pre-procedure area. Mental Status Examination: alert and oriented. Prophylactic Antibiotics: The patient does not require prophylactic antibiotics. Prior Anticoagulants: The patient has taken no anticoagulant or antiplatelet agents. After reviewing the risks and benefits, the patient was deemed in satisfactory condition to undergo the procedure. The anesthesia plan was to use monitored anesthesia care (MAC). Immediately prior to administration of medications, the patient was re-assessed for adequacy to receive sedatives. The heart rate, respiratory rate, oxygen saturations, blood pressure, adequacy of pulmonary ventilation, and response to care were monitored throughout the procedure. The physical status of the patient was re-assessed after the procedure. After obtaining informed consent, the endoscope was passed under direct vision. Throughout the procedure, the patient's blood pressure, pulse, and oxygen saturations were monitored continuously. The gastroscope was introduced through the mouth, and advanced to the second part of duodenum. The upper GI endoscopy was accomplished without difficulty. The patient tolerated the procedure well. Scope In: 12:48:10 PM Scope Out: 1:29:48 PM Total Procedure Duration Time 0 hours 41 minutes 38 seconds Findings: LA Grade D (one or more mucosal breaks involving at least 75% of esophageal circumference) esophagitis with no bleeding was found 34 to 40 cm from the incisors. A medium-sized hiatal hernia was present. Multiple 19 mm sessile polyps with no bleeding and stigmata of recent bleeding were found in the stomach. Polypectomy was attempted, initially using a hot snare. Polyp resection was incomplete with this device. This intervention then required a different device and polypectomy technique. The polyp was removed with a saline injection-lift technique using a hot snare. Resection and retrieval were complete. A single 6 mm polyp with no bleeding was found 39 to 40 cm from the incisors. The polyp was removed with a hot snare. Resection and retrieval were complete. A 9 mm non-bleeding Naomi-Diaz tear with no stigmata of recent bleeding was found. To prevent bleeding post-intervention, two hemostatic clips were successfully placed. Clip operator vacuum: [employer]. There was no bleeding at the end of the procedure. The first portion of the duodenum was normal. Impression: - LA Grade D reflux esophagitis with no bleeding. - Medium-sized hiatal hernia. - Multiple gastric polyps. Resected and retrieved. - Esophageal polyp(s) were found. Resected and retrieved. - Naomi-Diaz tear. Clips were placed. Clip operator vacuum: [employer]. - Normal first portion of the duodenum. Recommendation: - Discharge patient to home. - Resume previous diet. - Continue present medications. - Await pathology results. Procedure Code(s): --- Professional --- 58658, Esophagogastroduodenoscopy, flexible, transoral; with removal of tumor(s), polyp(s), or other lesion(s) by snare technique 28542, Esophagogastroduodenoscopy, flexible, transoral; with directed submucosal injection(s), any substance CPT copyright 2022 [employer]. All rights reserved. The codes documented in this report are preliminary and upon communications controller review may be revised to meet current compliance requirements. Geovanni Awad DO 02/12/2023 1:38:42 PM This report has been signed electronically. Number of Addenda: 0 Note Initiated On: 02/12/2023 12:39 PM
--- NOTE | 2023-02-12 13:39 | OP.CCLET_ITS ---
02/12/2023 Wing Galloway [address] [place] [address] Re : Upper GI endoscopy procedure for Zoltan Newton Dear Dr. Galloway This procedure was performed on Sunday, February 12, 2023. My impressions and recommendations are as follows: Impressions : - LA Grade D reflux esophagitis with no bleeding. - Medium-sized hiatal hernia. - Multiple gastric polyps. Resected and retrieved. - Esophageal polyp(s) were found. Resected and retrieved. - Naomi-Diaz tear. Clips were placed. Clip schedule analyst: [employer]. - Normal first portion of the duodenum. Recommendations : - Discharge patient to home. - Resume previous diet. - Continue present medications. - Await pathology results. My findings are described in the full procedure note, which is enclosed. If I can be of further assistance, please feel free to contact me at . Sincerely, Geovanni Friend, 02/12/2023 1:38:42 PM This report has been signed electronically.
== END 2023-02-12 14:22 | disposition home or self-care (01) ==
LOC: EN 11:45 → AC 11:45
PROVIDERS: PCP Family Medicine; Referring Provider Family Medicine; Visit Provider Internal Medicine Gastroenterology
PROC: 0DJ08ZZ Inspection of Upper Intestinal Tract, Via Natural or Artificial Opening Endoscopic (ICD-10-PCS; CPT 43235; principal; 2023-02-12 12:40)
DX: K21.00 Gastro-esophageal reflux disease with esophagitis, without bleeding (principal); K22.81 Esophageal polyp; K22.6 Gastro-esophageal laceration-hemorrhage syndrome; K31.7 Polyp of stomach and duodenum; K44.9 Diaphragmatic hernia without obstruction or gangrene; Z79.899 Other long term (current) drug therapy; Z87.891 Personal history of nicotine dependence
CPT/HCPCS: 43251; 88305; 88313; J7120; J2405